=== PATIENT | male | born 1970 | race Caucasian/White ===

== ENCOUNTER 2022-05-08 08:54 | Outpatient (CLI) | payer OTHER, SELFPAY ==
--- NOTE | ~2022-05-08 | XR_ITS ---
EXAM: XR lumbar spine 2-3V DATE: 05/08/2022 09:17 HISTORY: M54.9 - Dorsalgia, unspecified . COMPARISON: None available. FINDINGS: Lumbar scoliosis. Lumbar straightening. 4 mm retrolisthesis of L3 on L4. 5 nonrib-bearing l umbar-type vertebral bodies. Pedicles intact. Vertebral body heights preserved. Moderate disc space n arrowing at L3-4 and L4-5. Mild narrowing at L2-3 and L5-S1. Fusiform dilation of the abdominal aorta up to 3.6 cm. Multilevel facet sclerosis and hypertrophy. No fracture or dislocation. IMPRESSION: Fusiform abdominal aortic aneurysm, measuring approximately 3.6 cm, recommend ultrasound of the abdominal aorta for further evaluation. Grade 1 retrolisthesis at L3-4. Moderate degenerative disc disease at L3-4 and L4-5. Multilevel lumbar facet arthropathy.. Reviewed, dictated and finalized at location K. IMPRESSION: Fusiform abdominal aortic aneurysm, measuring approximately 3.6 cm, recommend ultrasound of the abdominal aorta for further evaluation. Grade 1 re trolisthesis at L3-4. Moderate degenerative disc disease at L3-4 and L4-5. Mult ilevel lumbar facet arthropathy..
== END 2022-05-08 08:55 | disposition home or self-care (01) ==
PROVIDERS: PCP Family Medicine; Visit Provider Nurse Practitioner Family
DX: M79.604 Pain in right leg (principal); M54.9 Dorsalgia, unspecified; I71.40 Abdominal aortic aneurysm, without rupture, unspecified; M43.16 Spondylolisthesis, lumbar region; M51.36 Other intervertebral disc degeneration, lumbar region; M12.88 Other specific arthropathies, not elsewhere classified, other specified site
CPT/HCPCS: 72100

== ENCOUNTER 2022-06-23 10:49 | Outpatient (CLI) | payer OTHER, SELFPAY ==
--- NOTE | ~2022-06-23 | MR_ITS ---
EXAMINATION: MR lumbar spine wo con DATE: 06/23/2022 11:51 INDICATION: Lumbar radiculopathy. TECHNIQUE: Magnetic resonance imaging (MRI) of the lumbar spine was performed without intravenous con trast. Sequences included sagittal T2-weighted FSE, sagittal T2-weighted FS FSE, sagittal T1-weighted FSE, and axial T2-weighted FSE. COMPARISON: Lumbar spine radiographs 05/08/2022 FINDINGS: There is 10 degrees levoscoliosis of lumbar spine. There is 4 mm retrolisthesis of L3 on L4 and L4 on L5. There is mild chronic anterior wedging of T11 and T12 vertebral bodies. There is mildl y decreased disc height at L2-L3 and moderately decreased disc height at L3-L4, L4-L5, and L5-S1. The distal spinal cord signal intensity is normal. The conus medullaris is at T12-L1. The following disc levels are specifically discussed: L1-L2: The disc does not extend beyond the endplate margin. There is no facet joint osteoarthritis. T here is no neural foraminal stenosis. There is no central canal stenosis. L2-L3: The disc is bulging and has an annular fissure. There is severe bilateral facet joint osteoart hritis. There is mild bilateral neural foraminal stenosis. There is mild central canal stenosis. L3-L4: The disc is bulging and has an annular fissure. There is moderate right and severe left facet joint osteoarthritis. There is moderate bilateral neural foraminal stenosis. There is mild central ca nal stenosis. L4-L5: The disc is bulging and has an annular fissure. There is severe bilateral facet joint osteoart hritis. There is moderate bilateral neural foraminal stenosis. There is mild central canal stenosis. L5-S1: The disc is bulging and has an annular fissure. There is severe bilateral facet joint osteoart hritis. There is mild right and moderate left neural foraminal stenosis. There is mild central canal stenosis. IMPRESSION: 1. Severe lumbar spondylosis. 2. Lumbar levoscoliosis. Reviewed, dictated and finalized at location A. CARRIER
== END 2022-06-23 10:50 | disposition home or self-care (01) ==
PROVIDERS: PCP Family Medicine; Visit Provider Nurse Practitioner Family
DX: M47.26 Other spondylosis with radiculopathy, lumbar region (principal)
CPT/HCPCS: 72148

== ENCOUNTER 2024-01-11 08:03 | Outpatient (CLI) | payer OTHER, SELFPAY ==
[2024-01-11 12:40] LABS: Basophils Absolute Auto 0.1 K/mm3 (0.0-0.1); Basophils Percent Auto 0.9 % (0.2-1.2); Eosinophils Absolute Auto 0.2 K/mm3 (0-0.3); Eosinophils Percent Auto 3.1 % (0-4.4); Hematocrit 45.4 % (42.0-52.0); Hemoglobin 14.8 g/dL (14.0-18.0); Immature Granulocyte Absolute 0.03 K/mm3 (0.00-0.031); Immature Granulocyte Percent A 0.4 % (0-0.5); Lymphocytes Absolute Auto 2.73 K/mm3 (0.9-3.2); Lymphocytes Percent Auto 36.3 % (18.3-44.2); Mean Corpuscular HGB Conc 32.6 g/dl (32-36); Mean Corpuscular Hemoglobin 30.1 pg (26-34); Mean Corpuscular Volume 92.3 fl (80-100); Mean Platelet Volume 10.6 fl (7.4-10.4); Monocytes Absolute Auto 0.8 K/mm3 (0.1-0.6); Neutrophils Absolute Auto 3.7 K/mm3 (1.3-6.7); Neutrophils Percent Auto 49.3 % (45.5-73.1); Platelet Count Result 314 k/mm3 (150-375); Red Blood Count 4.92 M/mm3 (4.6-6.20); Red Cell Distribution Width 13.3 % (11.5-14.5); White Blood Count 7.5 K/mm3 (4.5-10.0)
[2024-01-11 13:07] LABS: LDL Cholesterol Direct 185 mg/dL
[2024-01-11 13:22] LABS: Alanine Aminotransferase 15 U/L (6-50); Albumin Level 4.6 g/dL (3.5-5.1); Alkaline Phosphatase 71 U/L (38-126); Anion Gap 6 mmol/L (4-12); Aspartate Amino Transferase 52 U/L (17-59); Bilirubin,Total 0.5 mg/dL (0.2-1.3); Blood Urea Nitrogen 25 mg/dL (9-20); Calcium 9.6 mg/dL (8.4-10.2); Carbon Dioxide 26 mmol/L (22-30); Chloride 106 mmol/L (98-107); Cholesterol 283 mg/dL (0-200); Estimated Glomerular Filt Rate > 60; Glucose 99 mg/dL (65-110); HDL Direct 33 mg/dL; Potassium 4.3 mmol/L (3.4-5.0); Sodium 138 mmol/L (137-145); Triglycerides 241 mg/dL (<150)
[2024-01-11 13:25] LABS: Prostate Specific Antigen 0.5 ng/mL (< OR = 4.0)
[2024-01-11 14:47] LABS: Hepatitis C Virus Antibody Negative (Negative)
[2024-01-11 18:27] LABS: Thyroid Stimulating Hormone Reflex 0.735 uIU/mL (0.465-4.68)
== END 2024-01-11 08:04 | disposition home or self-care (01) ==
LOC: ANHGOSHLAB 08:04
PROVIDERS: PCP Family Medicine; Visit Provider Family Medicine
DX: Z00.00 Encounter for general adult medical examination without abnormal findings (principal); E78.5 Hyperlipidemia, unspecified; F41.9 Anxiety disorder, unspecified; E55.9 Vitamin D deficiency, unspecified; E53.8 Deficiency of other specified B group vitamins; Z20.5 Contact with and (suspected) exposure to viral hepatitis; Z12.5 Encounter for screening for malignant neoplasm of prostate; Z53.20 Procedure and treatment not carried out because of patient's decision for unspecified reasons; Z13.29 Encounter for screening for other suspected endocrine disorder
CPT/HCPCS: 36415; 80053; 80061; 82306; 82607; 84153; 84443; 85025; 86803; G0103

== ENCOUNTER 2025-07-29 08:03 | Outpatient (CLI) | payer SELFPAY ==
--- NOTE | ~2025-07-29 | US_ITS ---
EXAMINATION: US aorta DATE: 07/29/2025 18:10 GOVERNMENT PROGRAM MANAGER INDICATION: Abdominal aortic aneurysm TECHNIQUE: Grayscale, color Doppler, and pulsed Doppler images of the aorta and common iliac arteries were obtained. COMPARISON: None. FINDINGS: The proximal aorta measures 2.5 cm greatest sagittal dimension. The mid aorta measures 2.6 cm greatest sagittal dimension. The distal aorta measures 3.4 cm greatest sagittal dimension. The right common internal iliac artery measures 1.3 cm. The left common iliac artery measures 1.1 cm. IMPRESSION: 1. Infrarenal abdominal aortic aneurysm measuring 3.4 cm. Reviewed, dictated and finalized at location O. RNMENT PROGRAM MANAGER
== END 2025-07-29 08:04 | disposition home or self-care (01) ==
PROVIDERS: PCP Family Medicine; Visit Provider Internal Medicine Cardiovascular Disease
DX: I71.40 Abdominal aortic aneurysm, without rupture, unspecified (principal)
CPT/HCPCS: 76775